=== PATIENT | female | born 1975 ===

== ENCOUNTER 2018-10-13 14:46 | Emergency (ER) | payer MEDICAID, OTHER ==
[2018-10-13 14:58] VITALS: TEMP 98.2
--- NOTE | 2018-10-13 15:29 | C.PDOC ---
History Of Present Illness 43 year old female with a history of seizures presents to the emergency department stating that she has run out of her seizure medication as of two days ago. Patient states that she had a seizure last night, and can feel as if anothe r seizure is about to happen. In the ED, the patient is not seizing, and currently has no complaints at this time. Time Seen by Provider: 10/13/18 15:13 Chief Complaint (Nursing): Seizure History Per: Patient History/Exam Limitations: no limitations Recent Seizure Activity Began: Days Ago: (1) Number Of Seizures: One Precipitating Factor(s): Missed Dose Of Anti-seizure Medication Past Medical History Reviewed: Historical Data, Nursing Documentation, Vital Signs Vital Signs: Last Vital Signs Temp 98.2 F 10/13/18 14:54 Pulse 89 10/13/18 14:54 Resp 20 10/13/18 14:54 BP 149/94 H 10/13/18 14:54 Pulse Ox 98 10/13/18 14:54 - Medical History PMH: Anxiety, Bipolar Disorder, Depression, HIV, Schizophrenia Surgical History: No Surg Hx Family History: States: No Known Family Hx - Social History Hx Alcohol Use: Yes Hx Substance Use: Yes (heroin/marijuana) - Immunization History Hx Tetanus Toxoid Vaccination: No Hx Influenza Vaccination: Yes (06/2018) Hx Pneumococcal Vaccination: No Review Of Systems Except As Marked, All Systems Reviewed And Found Negative. Physical Exam - Physical Exam Appears: Non-toxic, No Acute Distress Skin: Normal Color, Warm, Dry Head: Atraumatic, Normacephalic Eye(s): bilateral: Normal Inspection, PERRL, EOMI Nose: Normal Oral Mucosa: Moist Neck: Normal, Supple Chest: Symmetrical, No Tenderness Cardiovascular: Rhythm Regular, No Murmur Respiratory: Normal Breath Sounds, No Rales, No Rhonchi, No Wheezing Gastrointestinal/Abdominal: Soft, No Tenderness, No Guarding, No Rebound Extremity: Normal ROM Neurological/Psych: Oriented x3, Normal Speech, Normal Cognition ED Course And Treatment - Laboratory Results Result Diagrams: 10/13/18 15:39 10/13/18 15:39 O2 Sat by Pulse Oximetry: 98 (RA) Pulse Ox Interpretation: Normal Medical Decision Making Medical Decision Making: Plan: CMP Dilantin 1000mg CBC Glucose POC Assessment: Seizure Patient given prescription for Dilantin. No seizure activity exhibited in the ED. Patient is clear for discharge home. Disposition Counseled Patient/Family Regarding: Studies Performed, Diagnosis, Need For Followup, Rx Given - Disposition Referrals: [facility] at [facility] [Outside] Disposition: HOME/ ROUTINE Disposition Time: 16:40 Condition: STABLE Additional Instructions: follow up with your doctor within 2 days call to make an appointment take medication as described return to ER is symptoms worsens or progress Prescriptions: Phenytoin, Extended [Dilantin Kapseals] 100 mg PO TID #90 cer Instructions: Seizures, Adult (DC) Forms: [facility] (Uruguayan), General Discharge Instructions - Clinical Impression Clinical Impression: Seizure - Scribe Statement The provider has reviewed the documentation as recorded by the Scribe (Ever Joseph) Provider Attestation: All medical record entries made by the Scribe were at my direction and personally dictated by me. I have reviewed the chart and agree that the record accurately reflects my personal performance of the history, physical exam, medical decision making, and the department course for this patient. I have also personally directed, reviewed, and agree with the discharge instructions and disposition.
[2018-10-13 15:48] LABS: BASO % 0.4 % (0.0-2.0); EOS # 0.1 K/uL (0.0-0.7); EOS % 4.3 % (0.0-4.0); HEMOGLOBIN 11.2 g/dL (11.0-16.0); LYMPH # 0.6 K/uL (1.0-4.3); MEAN CELL VOLUME 87.9 fL (81.0-99.0); MEAN CORPUSCULAR HEMOGLOBIN 29.8 pg (27.0-31.0); MEAN CORPUSCULAR HGB CONC 33.8 g/dL (33.0-37.0); MEAN PLATELET VOLUME 8.4 fL (7.2-11.7); MONO # 0.2 K/uL (0.0-0.8); MONO % 6.1 % (0.0-10.0); NEUT # 2.2 K/uL (1.8-7.0); NEUT % 71.2 % (50.0-75.0); NRBC % 0.1 % (0.0-2.0); RBC 3.76 Mil/uL (3.80-5.20); RED CELL DISTRIBUTION WIDTH 13.2 % (11.5-14.5); WHITE BLOOD COUNT 3.1 K/uL (4.8-10.8)
[2018-10-13 16:11] LABS: ALB/GLOB RATIO 1.3 (1.0-2.1); ALBUMIN 4.1 g/dL (3.5-5.0); ALT/SGPT 31 U/L (9-52); AST/SGOT 29 U/L (14-36); BLOOD UREA NITROGEN 13 mg/dL (7-17); CALCIUM 8.4 mg/dl (8.6-10.4); GFR NON-AFRICAN AMERICAN > 60
[2018-10-13 18:11] VITALS: BP 115/59; PULSE 81; RESP 18; O2SAT 96
== END 2018-10-13 18:11 | disposition home or self-care (01) ==
LOC: C.ER 14:46
DX: R56.9 Unspecified convulsions (principal); F20.9 Schizophrenia, unspecified
CPT/HCPCS: 80053; 80185; 82948; 85025; 96374; 99284; J1165

== ENCOUNTER 2018-11-09 13:58 | Emergency (ER) | payer MEDICAID ==
[2018-11-09 14:27] VITALS: RESP 18; TEMP 99; O2SAT 100
[2018-11-09 16:10] VITALS: BP 116/69; PULSE 80
--- NOTE | 2018-11-09 16:25 | C.PDOC ---
History Of Present Illness 43 y/o female,w/PMhx of seizures, bipolar disorder, and schizophrenia, presents to the ER for medication refill. Patient states that she was seen at [facility] today. She notes that she is not able to see the psychiatrist until her appointment on 11/12/18. Denies having suicidal ideation, homicidal ideation, auditory hallucinations, and active physical complaints. Time Seen by Provider: 11/09/18 14:42 Chief Complaint (Nursing): Med Refill History Per: Patient History/Exam Limitations: no limitations Past Medical History Reviewed: Historical Data, Nursing Documentation, Vital Signs Vital Signs: Last Vital Signs Temp 99 F 11/09/18 14:18 Pulse 80 11/09/18 16:10 Resp 18 11/09/18 16:10 BP 116/69 11/09/18 16:10 Pulse Ox 100 11/09/18 16:10 - Medical History PMH: Anxiety, Bipolar Disorder, Depression, HIV, Schizophrenia Surgical History: No Surg Hx Family History: States: No Known Family Hx - Social History Hx Alcohol Use: Yes Hx Substance Use: Yes (heroin/marijuana) - Immunization History Hx Tetanus Toxoid Vaccination: No Hx Influenza Vaccination: Yes (06/2018) Hx Pneumococcal Vaccination: No Review Of Systems Constitutional: Negative for: Fever, Chills Psych: Negative for: Suicidal ideation Physical Exam - Physical Exam Appears: Non-toxic, No Acute Distress Skin: Normal Color, Warm, Dry Head: Atraumatic, Normacephalic Eye(s): bilateral: Normal Inspection Nose: Normal Oral Mucosa: Moist Neck: Supple Chest: Symmetrical Neurological/Psych: Oriented x3, Normal Speech ED Course And Treatment O2 Sat by Pulse Oximetry: 100 (RA) Pulse Ox Interpretation: Normal Disposition Counseled Patient/Family Regarding: Diagnosis, Need For Followup, Rx Given - Disposition Referrals: [facility] [Outside] [facility] [Outside] [facility] [Outside] Disposition: HOME/ ROUTINE Disposition Time: 16:27 Condition: GOOD Additional Instructions: Please go back to [facility] on 11/12 for your follow up appointment as already scheduled. Also you need to establish a a primary care doctor- make an appointment at one of the clinics listed or call [facility] service to help you make soonest appointment. Prescriptions: Hydroxyzine Pamoate [Vistaril] 25 mg PO DAILY #3 capsule OLANZapine [ZyPREXA] 2.5 mg PO DAILY #3 tab Phenytoin, Extended [Dilantin Kapseals] 100 mg PO TID #21 cer Prazosin HCl [Minipress] 1 mg PO DAILY #7 cap Instructions: Seizures, Adult (DC) Forms: [facility] (Trinidadian), General Discharge Instructions - Clinical Impression Clinical Impression: Medication refill - PA / BILLET SAWYER / Resident Statement MD/DO has reviewed & agrees with the documentation as recorded. - Scribe Statement The provider has reviewed the documentation as recorded by the Shun Lovelace Provider Attestation All medical record entries made by the Shun were at my direction and personally dictated by me. I have reviewed the chart and agree that the record accurately reflects my personal performance of the history, physical exam, medical decision making, and the department course for this patient. I have also personally directed, reviewed, and agree with the discharge instructions and disposition.
== END 2018-11-09 16:44 | disposition home or self-care (01) ==
LOC: C.ER 13:58
DX: Z76.0 Encounter for issue of repeat prescription (principal)

== ENCOUNTER 2018-12-19 11:07 | Emergency (ER) | payer MEDICAID ==
[2018-12-19 11:42] VITALS: RESP 18
--- NOTE | 2018-12-19 12:23 | C.PDOC ---
History Of Present Illness 43 y/o female presents to the ER complaining of shortness of breath since last night. Patient states that she was recently admitted for OMER inhibitor angioedema in [facility]. Patient states that she was discharged with Prednisone She notes that she is taking the Prednisone however she feels shortness of breath.Denies having CP, fever,chills, nausea, vomiting, and abdominal pain. Time Seen by Provider: 12/19/18 11:43 Chief Complaint (Nursing): Shortness Of Breath History Per: Patient History/Exam Limitations: no limitations Onset/Duration Of Symptoms: Days Current Symptoms Are (Timing): Still Present Severity: Moderate Past Medical History Reviewed: Historical Data, Nursing Documentation, Vital Signs Vital Signs: Last Vital Signs Temp 98.3 F 12/19/18 11:12 Pulse 74 12/19/18 11:12 Resp 18 12/19/18 11:40 BP 109/71 12/19/18 11:12 Pulse Ox 98 12/19/18 11:12 - Medical History PMH: Anxiety, Asthma, Bipolar Disorder, Depression, HIV, HTN, Schizophrenia Surgical History: No Surg Hx Family History: States: No Known Family Hx - Social History Hx Alcohol Use: Yes Hx Substance Use: Yes (heroin/marijuana) - Immunization History Hx Tetanus Toxoid Vaccination: No Hx Influenza Vaccination: Yes (06/2018) Hx Pneumococcal Vaccination: No Review Of Systems Except As Marked, All Systems Reviewed And Found Negative. Constitutional: Negative for: Fever, Chills Cardiovascular: Negative for: Chest Pain Respiratory: Positive for: Shortness of Breath Gastrointestinal: Negative for: Nausea, Vomiting, Abdominal Pain Physical Exam - Physical Exam Appears: Non-toxic, No Acute Distress Skin: Normal Color, Warm, Dry Head: Atraumatic, Normacephalic Eye(s): bilateral: Normal Inspection Nose: Normal Oral Mucosa: Moist Neck: Supple Chest: Symmetrical Cardiovascular: Rhythm Regular Respiratory: Normal Breath Sounds, No Rales, No Rhonchi, No Wheezing Gastrointestinal/Abdominal: Normal Exam, Soft, No Tenderness, No Guarding, No Rebound Neurological/Psych: Oriented x3, Normal Speech ED Course And Treatment - Laboratory Results Result Diagrams: 12/19/18 12:51 12/19/18 13:41 ECG: Interpreted By Me, Viewed By Me ECG Rhythm: Sinus Rhythm ECG Interpretation: No Acute Changes O2 Sat by Pulse Oximetry: 98 (RA) Pulse Ox Interpretation: Normal - Other Rad CXR X-Ray: Viewed By Me, Read By Radiologist Interpretation: Date of service: 12/19/2018. HISTORY: SOB, chest pain. COMPARISON: None available. FINDINGS: LUNGS: No active pulmonary disease. PLEURA: No significant pleural effusion identified, no pneumothorax apparent. CARDIOVASCULAR: No aortic atherosclerotic calcification present. Normal cardiac size. No pulmonary vascular congestion. OSSEOUS STRUCTURES: No significant abnormalities. VISUALIZED UPPER ABDOMEN: Normal. OTHER FINDINGS: None. IMPRESSION: No active disease. Progress Note: Labs,UA,ECG, and CXR ordered. Disposition - Disposition Disposition: ELOPEMENT - ER ONLY Disposition Time: 16:40 Condition: UNKNOWN Forms: [email or web address] (Chinese) - Clinical Impression Clinical Impression: Chest pain - PA / POTATO SPOTTER / Resident Statement MD/DO has reviewed & agrees with the documentation as recorded. - Scribe Statement The provider has reviewed the documentation as recorded by the Scribe Jose Lovelace Provider Attestation All medical record entries made by the Scribe were at my direction and personally dictated by me. I have reviewed the chart and agree that the record accurately reflects my personal performance of the history, physical exam, medical decision making, and the department course for this patient. I have also personally directed, reviewed, and agree with the discharge instructions and disposition.
--- NOTE | 2018-12-19 12:43 | RAD ---
Date of service: 12/19/2018 HISTORY: SOB, chest pain COMPARISON: None available. FINDINGS: LUNGS: No active pulmonary disease. PLEURA: No significant pleural effusion identified, no pneumothorax apparent. CARDIOVASCULAR: No aortic atherosclerotic calcification present. Normal cardiac size. No pulmonary vascular congestion. OSSEOUS STRUCTURES: No significant abnormalities. VISUALIZED UPPER ABDOMEN: Normal. OTHER FINDINGS: None. IMPRESSION: No active disease.
[2018-12-19 12:46] LABS: HCG,QUALITATIVE URINE NEGATIVE (NEGATIVE)
[2018-12-19 12:53] LABS: URINE BILIRUBIN NEGATIVE (NEGATIVE); URINE BLOOD NEGATIVE (NEGATIVE); URINE CLARITY Clear (Clear); URINE COLOR Yellow (YELLOW); URINE GLUCOSE (UA) NORMAL (Normal); URINE LEUKOCYTE ESTERASE NEG Leu/uL (Negative); URINE PROTEIN NEGATIVE (NEGATIVE)
[2018-12-19 13:03] LABS: BASO % 0.8 % (0.0-2.0); EOS # 0.1 K/uL (0.0-0.7); EOS % 1.9 % (0.0-4.0); HEMOGLOBIN 11.2 g/dL (11.0-16.0); LYMPH # 0.5 K/uL (1.0-4.3); LYMPH % 14.2 % (20.0-40.0); MEAN CELL VOLUME 88.1 fL (81.0-99.0); MEAN CORPUSCULAR HEMOGLOBIN 29.7 pg (27.0-31.0); MEAN CORPUSCULAR HGB CONC 33.7 g/dL (33.0-37.0); MEAN PLATELET VOLUME 8.6 fL (7.2-11.7); MONO # 0.1 K/uL (0.0-0.8); MONO % 3.6 % (0.0-10.0); NEUT # 2.8 K/uL (1.8-7.0); NEUT % 79.5 % (50.0-75.0); NRBC % 0.1 % (0.0-2.0); RBC 3.76 Mil/uL (3.80-5.20); WHITE BLOOD COUNT 3.5 K/uL (4.8-10.8)
[2018-12-19 13:12] LABS: BARBITURATES, UR NEGATIVE (NEGATIVE); BENZODIAZEPINES, UR NEGATIVE (NEGATIVE); OPIATES, UR NEGATIVE (NEGATIVE); PHENCYCLIDINE, UR NEGATIVE (NEGATIVE)
[2018-12-19 13:52] VITALS: BP 110/75; PULSE 75; TEMP 97.8
[2018-12-19 14:14] LABS: INR 1.1; PROTHROMBIN TIME 11.7 SECONDS (9.7-12.2)
[2018-12-19 14:22] LABS: ALB/GLOB RATIO 1.3 (1.0-2.1); ALBUMIN 3.8 g/dL (3.5-5.0); ALT/SGPT 23 U/L (9-52); AST/SGOT 40 U/L (14-36); BLOOD UREA NITROGEN 18 mg/dL (7-17); CALCIUM 8.8 mg/dl (8.6-10.4); GFR NON-AFRICAN AMERICAN > 60
[2018-12-19 14:37] LABS: CK-MB < 0.22 ng/mL (0.0-3.38)
[2018-12-19 14:39] VITALS: O2SAT 98
--- NOTE | 2018-12-20 19:00 | CARD ---
APPROVED REPORT Date of service: 12/19/2018 EKG Measurement Heart [id number] <Conclusion> Normal sinus rhythm Normal ECG
== END 2018-12-19 16:39 | disposition left against medical advice (07) ==
LOC: C.ER 11:07
DX: R07.9 Chest pain, unspecified (principal)